=== PATIENT | male | born 1970 | race Caucasian/White ===

== ENCOUNTER 2022-07-21 21:25 | Emergency (ER) | payer OTHER ==
[~2022-07-21 21:25] MED LIST: LISINOPRIL20 MG PO; MIDODRINE HCL2.5 MG PO
[2022-07-22] MEDS ORDERED: NORFLEX 100 MG100 MG PO (02:08)
[2022-07-22] MEDS ORDERED: IBUPROFEN600 MG PO (02:08)
== END 2022-07-22 02:18 | disposition home or self-care (01) ==
LOC: ER1 21:25
DX: S43.102A Unspecified dislocation of left acromioclavicular joint, initial encounter (principal); S13.4XXA Sprain of ligaments of cervical spine, initial encounter; S29.012A Strain of muscle and tendon of back wall of thorax, initial encounter; S00.01XA Abrasion of scalp, initial encounter; F17.210 Nicotine dependence, cigarettes, uncomplicated; I10 Essential (primary) hypertension; Z88.0 Allergy status to penicillin; Z20.822 Contact with and (suspected) exposure to COVID-19; V29.9XXA Motorcycle rider (driver) (passenger) injured in unspecified traffic accident, initial encounter
CPT/HCPCS: 70450; 71045; 72125; 72128; 73030; 99284; U0002